=== PATIENT | female | born 1965 | race Caucasian/White ===

== ENCOUNTER 2025-02-15 12:05 | Emergency (ER) | payer SELFPAY ==
[~2025-02-15] VITALS: Ht 162.6 cm; Wt 89.0 kg
[2025-02-15 12:09] VITALS: O2SAT 100
[2025-02-15 12:36] LABS: BASOPHILS % 0.7 % (0.0-2.0); EOSINOPHILS % 2.0 % (0.0-5.0); HEMATOCRIT. 37.0 % (36.0-48.0); HEMOGLOBIN. 11.9 g/dL (12.0-16.0); LYMPHOCYTES % 32.7 % (20.0-50.0); MEAN PLATELET VOLUME 9.2 fl (7.4-10.4); MONOCYTES % 6.3 % (2.0-8.0); NEUTROPHILS % 58.3 % (40.0-76.0); PLATELET 356 x1000/uL (130-400); RED BLOOD CELL COUNT 4.25 mill/uL (4.2-5.4); RED CELL DISTRIBUTION WIDTH 14.5 % (11.6-14.6)
[2025-02-15 12:38] VITALS: BP 189/93; PULSE 70; RESP 16; TEMP 37.1; O2SAT 100
[2025-02-15 12:54] LABS: CREATININE 0.8 mg/dL (0.6-1.0); UREA NITROGEN BLOOD 14 mg/dL (9-23)
[2025-02-15] MEDS ORDERED: CYCL10TA21 MT (12:56)
[2025-02-15] MEDS ORDERED: METF750T46 MT (12:56)
[2025-02-15] MEDS ORDERED: OMEP40CA20 MT (12:56)
[2025-02-15] MEDS ORDERED: BLOO1KIT74 TP (12:56)
[2025-02-15] MEDS ORDERED: IBUP-2030 MT (12:56)
[2025-02-15] MEDS ORDERED: ASPI-1406 MT (12:56)
[2025-02-15] MEDS ORDERED: AMLO5TAB88 MT (12:56)
== END 2025-02-15 13:39 | disposition home or self-care (01) ==
LOC: ER 12:05
DX: I10 Essential (primary) hypertension (principal); Z76.0 Encounter for issue of repeat prescription; E11.9 Type 2 diabetes mellitus without complications; M19.90 Unspecified osteoarthritis, unspecified site; Z79.82 Long term (current) use of aspirin; Z79.84 Long term (current) use of oral hypoglycemic drugs; Z79.899 Other long term (current) drug therapy
CPT/HCPCS: 36415; 80048; 85025; 93005; 99283